=== PATIENT | female | born 1965 | race Two or more races ===

== ENCOUNTER 2022-06-14 09:30 | Day surgery (SDC) | payer MEDICAID ==
[2022-06-10 09:53] LABS: Basophils # (auto) 0 10 ^3/uL (0-0.2); Basophils % (auto) 0.8 % (0.0-2.0); Eosinophils # (auto) 0 10 ^3/uL (0-0.8); Eosinophils % (auto) 0.4 % (0.0-7.0); Hematocrit 34.9 % (36.0-46.0); Hemoglobin 11.3 g/dL (12.2-16.2); Lymphocytes # (auto) 2.3 10 ^3/uL (0.4-5.4); Lymphocytes % (auto) 48.7 % (10.0-50.0); Mean Corpuscular Hemoglobin 28.6 pg (28.0-32.0); Mean Corpuscular Hgb Conc. 32.5 g/dL (32.0-36.0); Mean Corpuscular Volume 88.1 fL (80.0-100.0); Monocytes # (auto) 0.4 10 ^3/uL (0-1.3); Monocytes % (auto) 7.9 % (0.0-12.0); Neutrophils % (auto) 42.2 % (37.0-80.0); Nucleated Red Blood Cells % 0.1 %; Red Blood Cells 3.96 10^6/uL (4.0-5.20); Red Cell Distribution Width 14.4 % (11.8-14.3); White Blood Cell 4.7 10^3/uL (4.4-10.8)
[2022-06-10 10:00] LABS: INR 1.05 (0.9-1.15); Partial Thromboplastin Time 26.2 sec (24.6-33.4)
[2022-06-10 10:14] LABS: Albumin 4.3 g/dL (3.4-5.0); Calcium 9.5 mg/dL (8.5-10.1); Potassium 5.3 mmol/L (3.5-5.1)
[2022-06-10 10:18] LABS: BUN/Creatinine Ratio 20.4; Bilirubin, Total 0.5 mg/dL (0.2-1.0)
[~2022-06-14] VITALS: Ht 157.5 cm; Wt 69.4 kg
[~2022-06-14 09:30] MED LIST: APIX5TAB PO; FENT25DI2 TD; INSU1INJ19 SC; OMEP20TA PO; PREG150C PO
[2022-06-14] MEDS ORDERED: NALOXONE HCL 0.4 MG/ML VIAL ONE (09:35)
[2022-06-14] MEDS ORDERED: LIDOCAINE VISCOUS 2% 15ML UD ONE ×2 (09:35→10:36)
[2022-06-14] MEDS ORDERED: SODIUM CHLORIDE LOCK 10 ML ONE (09:35)
[2022-06-14] MEDS ORDERED: FLUMAZENIL 0.1 MG/ML INJ 10ML MDV IV ONE (09:35)
[2022-06-14] MEDS ORDERED: MIDAZOLAM HCL 5 MG/ML-1ML VIAL ONE ×2 (09:36→10:36)
[2022-06-14] MEDS ORDERED: diphenhdrAMINE HCL 50 MG/1 ML VL ONE ×2 (09:36→10:36)
[2022-06-14] MEDS ORDERED: fentaNYL CITRATE 100 MCG/2 ML VL ONE ×2 (09:36→10:37)
[2022-06-14] MEDS ORDERED: LIDOCAINE VISCOUS 2% 15ML UD MT ONE (11:49)
[2022-06-14] MEDS ORDERED: diphenhdrAMINE HCL 50 MG/1 ML VL IV ONE ×2 (11:50→11:51)
[2022-06-14] MEDS ORDERED: MIDAZOLAM HCL 5 MG/ML-1ML VIAL IV ONE (11:50)
[2022-06-14] MEDS ORDERED: fentaNYL CITRATE 100 MCG/2 ML VL IV ONE (11:50)
[2022-06-14 12:34] VITALS: BP 148/78
== END 2022-06-14 12:43 | disposition home or self-care (01) ==
LOC: GI 09:30
PROVIDERS: ATTEND Internal Medicine Gastroenterology
DX: K22.2 Esophageal obstruction (principal); R13.12 Dysphagia, oropharyngeal phase; K20.0 Eosinophilic esophagitis; I10 Essential (primary) hypertension; E11.9 Type 2 diabetes mellitus without complications; Z79.84 Long term (current) use of oral hypoglycemic drugs; Z20.822 Contact with and (suspected) exposure to COVID-19
CPT/HCPCS: 36415; 43235; 80053; 82962; 85025; 85610; 85730; J1200; J2250; J3010; J7030; U0003

== ENCOUNTER 2022-07-15 11:45 | Day surgery (SDC) | payer MEDICAID ==
[2022-07-14 11:53] LABS: Basophils # (auto) 0 10 ^3/uL (0-0.2); Basophils % (auto) 0.8 % (0.0-2.0); Eosinophils # (auto) 0 10 ^3/uL (0-0.8); Eosinophils % (auto) 0.3 % (0.0-7.0); Hematocrit 33.9 % (36.0-46.0); Hemoglobin 11.3 g/dL (12.2-16.2); Lymphocytes # (auto) 2.9 10 ^3/uL (0.4-5.4); Lymphocytes % (auto) 54.3 % (10.0-50.0); Mean Corpuscular Hemoglobin 29.3 pg (28.0-32.0); Mean Corpuscular Hgb Conc. 33.2 g/dL (32.0-36.0); Mean Corpuscular Volume 88.3 fL (80.0-100.0); Monocytes # (auto) 0.4 10 ^3/uL (0-1.3); Monocytes % (auto) 6.8 % (0.0-12.0); Neutrophils % (auto) 37.8 % (37.0-80.0); Nucleated Red Blood Cells % 0.1 %; Red Blood Cells 3.84 10^6/uL (4.0-5.20); White Blood Cell 5.3 10^3/uL (4.4-10.8)
[2022-07-14 12:16] LABS: INR 0.97 (0.9-1.15); Partial Thromboplastin Time 26.2 sec (24.6-33.4)
[2022-07-14 12:24] LABS: Urine Bacteria NONE SEEN /hpf (None Seen); Urine Blood Negative /uL (Negative); Urine Specific Gravity 1.015 (1.001-1.035); Urine WBC 1 /hpf (0 - 5)
[2022-07-14 12:29] LABS: Albumin 4.4 g/dL (3.4-5.0); Calcium 9.2 mg/dL (8.5-10.1); Potassium 5.1 mmol/L (3.5-5.1)
[2022-07-14 12:33] LABS: BUN/Creatinine Ratio 17.4; Bilirubin, Total 0.4 mg/dL (0.2-1.0)
[~2022-07-15] VITALS: Ht 157.5 cm; Wt 68.0 kg
[2022-07-15] MEDS ORDERED: NALOXONE HCL 0.4 MG/ML VIAL ONE (12:20)
[2022-07-15] MEDS ORDERED: FLUMAZENIL 0.1 MG/ML INJ 10ML MDV IV ONE (12:20)
[2022-07-15] MEDS ORDERED: GLYCOPYRROLATE 0.2 MG/ML 1ML VIAL ONE (12:49)
[2022-07-15] MEDS ORDERED: PROPOFOL 10 MG/ML 20 ML IV ONE (12:49)
[2022-07-15] MEDS ORDERED: KETAMINE 50mg/ML 10ml Vial (500mg/10ml) IV ONE (12:49)
[2022-07-15] MEDS ORDERED: LIDOCAINE 2%HCL (LOCAL ANESTH.) INJ 10ml MDV ONE (12:51)
[2022-07-15 13:58] VITALS: BP 154/82
== END 2022-07-15 14:08 | disposition home or self-care (01) ==
LOC: GI 11:45
PROVIDERS: ATTEND Internal Medicine Gastroenterology
DX: K22.2 Esophageal obstruction (principal); R13.10 Dysphagia, unspecified; K44.9 Diaphragmatic hernia without obstruction or gangrene; E11.40 Type 2 diabetes mellitus with diabetic neuropathy, unspecified; Z79.84 Long term (current) use of oral hypoglycemic drugs; Z20.822 Contact with and (suspected) exposure to COVID-19
CPT/HCPCS: 36415; 43249; 80053; 81001; 82962; 85025; 85610; 85730; J2001; J2704; J7030; U0003

== ENCOUNTER 2022-11-30 12:21 | Day surgery (SDC) | payer MEDICAID ==
[2022-11-25 10:37] LABS: Basophils # (auto) 0.1 10 ^3/uL (0-0.2); Basophils % (auto) 1.2 % (0.0-2.0); Eosinophils # (auto) 0 10 ^3/uL (0-0.8); Eosinophils % (auto) 0.3 % (0.0-7.0); Hematocrit 33.3 % (36.0-46.0); Hemoglobin 10.7 g/dL (12.2-16.2); Lymphocytes # (auto) 2.5 10 ^3/uL (0.4-5.4); Lymphocytes % (auto) 53.8 % (10.0-50.0); Mean Corpuscular Hemoglobin 28.5 pg (28.0-32.0); Mean Corpuscular Hgb Conc. 32.1 g/dL (32.0-36.0); Mean Corpuscular Volume 88.9 fL (80.0-100.0); Monocytes # (auto) 0.3 10 ^3/uL (0-1.3); Monocytes % (auto) 5.8 % (0.0-12.0); Neutrophils # (auto) 1.8 10 ^3/uL (1.6-8.6); Neutrophils % (auto) 38.9 % (37.0-80.0); Nucleated Red Blood Cells % 0.2 %; Red Blood Cells 3.75 10^6/uL (4.0-5.20); Red Cell Distribution Width 14.7 % (11.8-14.3); White Blood Cell 4.6 10^3/uL (4.4-10.8)
[2022-11-25 11:06] LABS: Albumin 4.3 g/dL (3.4-5.0); Calcium 9.3 mg/dL (8.5-10.1); Potassium 4.8 mmol/L (3.5-5.1)
[2022-11-25 11:09] LABS: BUN/Creatinine Ratio 14.3 (10.0-20.0); Bilirubin, Total 0.5 mg/dL (0.2-1.0)
[2022-11-25 11:22] LABS: INR 1.03 (0.9-1.15); Partial Thromboplastin Time 29.9 sec (24.6-33.4)
[~2022-11-30 12:21] MED LIST changes: +ACET300T58 PO; +CHOL200021 PO; +CITA10TA8 PO; -FENT25DI2 TD
[2022-11-30] MEDS ORDERED: MIDAZOLAM HCL 2MG/2ML 2ml VIAL (1mg/ml) ONE (12:43)
[2022-11-30] MEDS ORDERED: diphenhdrAMINE HCL 50 MG/1 ML VL ONE (12:44)
[2022-11-30] MEDS ORDERED: fentaNYL CITRATE 100 MCG/2 ML VL ONE (12:44)
[2022-11-30] MEDS ORDERED: LIDOCAINE 2% (LOCAL ANESTH.) PF 5ml SDV ONE (14:06)
[2022-11-30] MEDS ORDERED: PROPOFOL 10 MG/ML 20 ML IV ONE ×2 (14:06→14:21)
[2022-11-30 15:00] VITALS: BP 179/87
[2022-12-01] MEDS ORDERED: CHOL20007 PO (10:22)
[2022-12-01] MEDS ORDERED: FLU220IH INH (10:22)
[2022-12-01] MEDS ORDERED: CYA100I IM (10:22)
[2022-12-01] MEDS ORDERED: OMEP20TA PO (10:22)
== END 2022-11-30 15:07 | disposition home or self-care (01) ==
LOC: GI 12:21
PROVIDERS: ATTEND Internal Medicine Gastroenterology
DX: R13.12 Dysphagia, oropharyngeal phase (principal); K22.2 Esophageal obstruction; K44.9 Diaphragmatic hernia without obstruction or gangrene; I10 Essential (primary) hypertension; E66.3 Overweight
CPT/HCPCS: 36415; 43239; 43249; 80053; 82962; 85025; 85610; 85730; 88305; 88342; C1726; J1200; J2001; J2250; J2704; J3010; J7030

== ENCOUNTER 2022-12-06 07:22 | Day surgery (SDC) | payer MEDICAID ==
[2022-12-06] VITALS (10 sets, daily range): BP systolic 138–152; BP diastolic 73–84
[~2022-12-06] VITALS: Ht 157.5 cm; Wt 63.5 kg
[~2022-12-06 07:22] MED LIST changes: -CHOL200021 PO; +CHOL20007 PO; +CYA100I IM; +FLU220IH INH
[2022-12-06] MEDS ORDERED: ANGIOMAX 250 MG VIAL IV ONE (08:58)
[2022-12-06] MEDS ORDERED: IODIXANOL 320MG/ML 100ML BTL IV ONE ×2 (08:58→09:19)
[2022-12-06] MEDS ORDERED: LIDOCAINE 2%HCL (LOCAL ANESTH.) INJ 20ML MDV ONE (08:58)
[2022-12-06] MEDS ORDERED: fentaNYL CITRATE 100 MCG/2 ML VL ONE (08:59)
[2022-12-06] MEDS ORDERED: VERAPAMIL 2.5MG/ML INJ 2ML VIAL IV ONE (08:59)
[2022-12-06] MEDS ORDERED: SODIUM CHL 0.9% 0 ML ONE (08:59)
[2022-12-06] MEDS ORDERED: HEPARIN SODIUM (PORCINE) 5000 UNITS/ML 1ML VIAL ONE (08:59)
[2022-12-06] MEDS ORDERED: MIDAZOLAM HCL 2MG/2ML 2ml VIAL (1mg/ml) ONE (08:59)
== END 2022-12-06 12:12 | disposition home or self-care (01) ==
LOC: CATH 07:22
PROVIDERS: ATTEND Internal Medicine Cardiovascular Disease
DX: R94.39 Abnormal result of other cardiovascular function study (principal); I25.10 Atherosclerotic heart disease of native coronary artery without angina pectoris; R06.02 Shortness of breath; I25.2 Old myocardial infarction; I27.20 Pulmonary hypertension, unspecified; Z86.73 Personal history of transient ischemic attack (TIA), and cerebral infarction without residual deficits
CPT/HCPCS: 76937; 93458; C1725; C1769; C1894; J1644; J2250; J3010; J7030; Q9967; 99152; 99153